=== PATIENT | female | born 1955 | race Caucasian/White ===

== ENCOUNTER 2021-10-25 01:06 | Day surgery (SDC) | payer MEDICARE, SELFPAY ==
[2021-10-17 14:50] VITALS: BMI 34.9
[2021-10-25 09:22] VITALS: BP 170/82; PULSE 62; RESP 18; TEMP 36.3; O2SAT 98; BMI 49.4
[2021-10-25] MEDS: LACTATED RINGERS 1,000 ML 150 ML IV CONT (09:50)
--- NOTE | 2021-10-25 10:24 | WPDANESEPPF ---
Anes - Initial Pre Proc Eval Procedure: Operation Date: 10/25/21 10:45 Proposed Procedures p Esophagogastroduodenoscopy - Marc Cadena MD Date/Time: 10/25/21 10:24 Surgeon: Marc Cadena MD Pre Op Diagnosis: GERD Patient Data Age: 66 Gender: F Height: 1.6 m Weight: 126.7 kg Last Vital Signs Temp 97.4 F L 10/25/21 09:22 Pulse 62 10/25/21 09:22 Resp 18 10/25/21 09:22 BP 170/82 H 10/25/21 09:22 Pulse Ox 98 10/25/21 09:22 Allergies Allergy/AdvReac Type Severity Reaction Status Date / Time Penicillins Allergy Mild Unknown Verified 10/25/21 09:31 Sulfa (Sulfonamide Allergy Mild Unknown Verified 10/25/21 09:31 Antibiotics) Home Medications Medication Instructions Recorded Confirmed Type aspirin 81 mg tablet,delayed 81 mg PO DAILY 09/08/21 10/25/21 History release bupropion HCl 150 mg 24 hr tablet, 150 mg PO TID 09/08/21 10/25/21 History extended release carvedilol 3.125 mg tablet 3.125 mg PO Q12H 09/08/21 10/25/21 History cholecalciferol (vitamin D3) 25 25 mcg PO DAILY 09/08/21 10/25/21 History mcg (1,000 unit) capsule escitalopram oxalate 20 mg tablet 20 mg PO DAILY PRN 09/08/21 10/25/21 History estradiol 0.0375 mg/24 hr 1 patch TRANSDERMAL 2XW 09/08/21 10/25/21 History semiweekly transdermal patch furosemide 40 mg tablet 40 mg PO QAM 09/08/21 10/25/21 History lisinopril 40 mg tablet 40 mg PO DAILY 09/08/21 10/25/21 History nystatin 100,000 unit/gram topical 1 applic TOPICAL DAILY 09/08/21 10/25/21 History cream rosuvastatin 10 mg tablet 10 mg PO DAILY 09/08/21 10/25/21 History diclofenac sodium 1 ea TOPICAL 3XW 10/17/21 10/25/21 History melatonin 3 mg PO HS 10/17/21 10/25/21 History trazodone 50 mg PO DAILY 10/17/21 10/25/21 History Patient hx anesthesia problems: none Family hx anesthesia problems: none Results Review: All pre-operative results and documents have been reviewed as part of the pre-operative evaluation. [facility] Past Medical History Medical History (Updated 09/08/21 @ 15:35 by Marc Cadena MD) Colon cancer screening GERD (gastroesophageal reflux disease) Hypertension Non-cardiac chest pain Obesity, morbid, BMI 40.0-49.9 Surgical History Surgical History (Updated 09/08/21 @ 15:33 by Marc Cadena MD) H/O colonoscopy Family History Family History (Updated 09/08/21 @ 15:33 by Marc Cadena MD) Other Hypertension Social History Social History (Updated 09/08/21 @ 15:18 by Alexandria Loo [employer]) Smoking status: Never smoker Alcohol intake: never Substance use: never Substance use type: does not use Living arrangements: alone Spiritual care concerns: No Anes - Eval Final PreProcedure Day of Procedure 10/25/21 10:24 Patient weight: super morbidly obese Heart: regular rate and rhythm Lungs: clear to auscultation Airway: Mallampati scale class III Neurological: alert and oriented Last oral intake: >/= 8 hours ASA classification: IV Emergent: no Anesthetic plan: proceed Anesthesia type and monitoring: general GIVS and standard monitoring Results Review: All pre-operative results and documents have been reviewed as part of the pre-operative evaluation. Informed Consent: The patient's anesthetic plan and its attendant risks and benefits were discussed with the patient/family/POA. Questions were solicited and answers provided to the satisfaction of the patient/family/POA.
--- NOTE | 2021-10-25 10:27 | PM.HPGS ---
History of Present Illness History of Present Illness Consent: Risks, benefits, and alternatives have been discussed and questions answered. Patient agrees to proceed with procedure. Chief complaint: GERD Narrative: Luúl Kenyon is a 66 year old female with gerd, sometimes still symptomatic. She is taking omeprazole. Last EGD 2018 showed gastritis, no h pylori. Recent ER visit for non-cardiac CP Review of Systems Constitutional: Constitutional: Denies headache(s) and Denies weakness Eyes: Eyes: Denies blurry vision ENT: Reports Normal hearing present, Denies headache(s) and Denies neck pain Cardiovascular: Cardiovascular: Denies chest pain and Denies dyspnea Respiratory: Respiratory: Denies dyspnea Gastrointestinal: Gastrointestinal: Reports no additional gastrointestinal complaints Genitourinary: Genitourinary: Denies dysuria Musculoskeletal: Musculoskeletal: Denies neck pain Integumentary/Breasts: Skin/Breast: Denies dry skin Neurologic: Reports Normal hearing present, Denies headache(s) and Denies weakness Psychiatric: Psychiatric: Denies anxiety Endocrine: Endocrine: Denies change in body appearance Hematologic/Lymphatic: Hematologic/Lymphatic: Denies easy bleeding Allergic/Immunologic: Allergic/Immunologic: Denies urticaria PMFSH Past Medical History Medical History (Updated 09/08/21 @ 15:35 by Marc Cadena MD) Colon cancer screening GERD (gastroesophageal reflux disease) Hypertension Non-cardiac chest pain Obesity, morbid, BMI 40.0-49.9 Surgical History Surgical History (Updated 09/08/21 @ 15:33 by Marc Cadena MD) H/O colonoscopy Family History Family History (Updated 09/08/21 @ 15:33 by Marc Cadnea MD) Other Hypertension Social History Social History (Updated 09/08/21 @ 15:18 by Alexandria Loo CMA) Smoking status: Never smoker Alcohol intake: never Substance use: never Substance use type: does not use Living arrangements: alone Spiritual care concerns: No Meds Home Medications and Allergies Home Medications Medication Instructions Recorded Confirmed Type aspirin 81 mg tablet,delayed 81 mg PO DAILY 09/08/21 10/25/21 History release bupropion HCl 150 mg 24 hr tablet, 150 mg PO TID 09/08/21 10/25/21 History extended release carvedilol 3.125 mg tablet 3.125 mg PO Q12H 09/08/21 10/25/21 History cholecalciferol (vitamin D3) 25 25 mcg PO DAILY 09/08/21 10/25/21 History mcg (1,000 unit) capsule escitalopram oxalate 20 mg tablet 20 mg PO DAILY PRN 09/08/21 10/25/21 History estradiol 0.0375 mg/24 hr 1 patch TRANSDERMAL 2XW 09/08/21 10/25/21 History semiweekly transdermal patch furosemide 40 mg tablet 40 mg PO QAM 09/08/21 10/25/21 History lisinopril 40 mg tablet 40 mg PO DAILY 09/08/21 10/25/21 History nystatin 100,000 unit/gram topical 1 applic TOPICAL DAILY 09/08/21 10/25/21 History cream rosuvastatin 10 mg tablet 10 mg PO DAILY 09/08/21 10/25/21 History diclofenac sodium 1 ea TOPICAL 3XW 10/17/21 10/25/21 History melatonin 3 mg PO HS 10/17/21 10/25/21 History trazodone 50 mg PO DAILY 10/17/21 10/25/21 History Allergies Allergy/AdvReac Type Severity Reaction Status Date / Time Penicillins Allergy Mild Unknown Verified 10/25/21 09:31 Sulfa (Sulfonamide Allergy Mild Unknown Verified 10/25/21 09:31 Antibiotics) Vital Signs Vital Signs - 24 hr 10/25/21 09:22 Temperature 97.4 F L Pulse Rate 62 Respiratory Rate 18 Blood Pressure 170/82 H Pulse Oximetry 98 Exam Const: General: comfortable and no acute distress HENMT: General nose exam: Normal nares present Eyes: General: appearance normal, both eyes and all related structures Neck: Neck: no JVD Resp: Auscultation: clear to auscultation bilaterally Cardio: Rate: regular rate Rhythm: regular rhythm GI: Inspection: non-distended GI Palp: Yes Soft to palpation Skin: General skin exam: normal color Neuro:
[2021-10-25 10:46] VITALS: BP 132/83; PULSE 58; RESP 19; O2SAT 96
[2021-10-25 10:56] VITALS: BP 142/67; PULSE 55; RESP 15; O2SAT 95
[2021-10-25 11:06] VITALS: BP 153/65; PULSE 48; RESP 17; O2SAT 98
== END 2021-10-25 11:22 | disposition home or self-care (01) ==
PROVIDERS: Visit Provider Internal Medicine Gastroenterology
PROC: 0DJ08ZZ Inspection of Upper Intestinal Tract, Via Natural or Artificial Opening Endoscopic (ICD-10-PCS; CPT 43235; principal; 2021-10-25 10:45)
DX: K21.9 Gastro-esophageal reflux disease without esophagitis (principal); I10 Essential (primary) hypertension; E66.01 Morbid (severe) obesity due to excess calories; K29.50 Unspecified chronic gastritis without bleeding; R07.9 Chest pain, unspecified
CPT/HCPCS: 43239; 88305; J2704; J7120